=== PATIENT | female | born 1990 | race Caucasian/White ===

== ENCOUNTER 2024-06-23 13:06 | Inpatient (IN) | payer MEDICAID ==
[~2024-06-23] VITALS: Ht 165.1 cm; Wt 217.1 kg
--- NOTE | 2024-06-23 13:24 | ED.PDOC ---
HPI Comments 34 y.o female presents to the ED via EMS for a chief complaint of chest pain. Patient was transported out from [facility] for high level of care. Patient has a history of chest pain in the past. Patient reports recent recovery from the stomach virus about 2 days ago. Denies any nausea, vomiting, diarrhea, fever, chills, or SOB. 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 Family History Family History: Reviewed,noncontributory to illness Social History Smoker: Non-Smoker Alcohol: Denies ETOH Use Drugs: Denies Drug Use Lives In: Home Constitutional: denies: chills, diaphoresis, fatigue, fever, malaise, sweats, weakness, others EENTM: denies: blurred vision, double vision, ear bleeding, ear discharge, ear drainage, ear pain, ear ringing, eye pain, eye redness, hearing loss, mouth pain, mouth swelling, nasal discharge, nose bleeding, nose congestion, nose pain, photophobia, tearing, throat pain, throat swelling, voice changes, others Respiratory: denies: cough, hemoptysis, orthopnea, SOB at rest, shortness of breath, SOB with excertion, stridor, wheezing, others Cardiovascular: reports: chest pain; denies: dizzy spells, diaphoresis, Dyspnea on exertion, edema, irregular heart beat, left arm pain, lightheadedness, palpitations, PND, syncope, others Gastrointestinal: denies: abdomen distended, abdominal pain, blood streaked bowels, constipated, diarrhea, dysphagia, difficulty swallowing, hematemesis, melena, nausea, poor appetite, poor fluid intake, rectal bleeding, rectal pain, vomiting, others Genitourinary: denies: abnormal vagina bleeding, burning, dyspareunia, dysuria, flank pain, frequency, hematuria, incontinence, pain, , vagina discharge, urgency, others Neurological: denies: dizziness, fainting, headache, left sided numbness, left sided weakness, numbness, paresthesia, pre-existing deficit, right sided numbness, right sided weakness, seizure, speech problems, tingling, tremors, weakness, others Musculoskeletal: denies: back pain, gout, joint pain, joint swelling, muscle pain, muscle stiffness, neck pain, others Integumetry: denies: bruises, change in color, change in hair/nails, dryness, laceration, lesions, lumps, rash, wounds, others Allergic/Immunocompromised: denies: Difficulty Healing, Frequent Infections, Hives, Itching, others Hematologic/Lymphatic: denies: anemia, blood clots, easy bleeding, easy bruising, swollen glands, others Endocrine: denies: excessive hunger, excessive sweating, excessive thirst, excessive urination, flushing, intolerance to cold, intolerance to heat, unexplained weight gain, unexplained weight loss, others Psychiatric: denies: anxiety, bipolar disorder, depression, hopeless, panic disorder, schizophrenia, sleepless, suicidal, others All Other Systems: Reviewed and Negative Physical Exam General Appearance: No Apparent Distress, Normal HEENT: Normal ENT Inspection, Pharynx Normal, TMs Normal Neck: Full Range of Motion, Non-Tender, Normal, Normal Inspection Respiratory: Chest Non-Tender, Lungs Clear, No Accessory Muscle Use, No Respiratory Distress, Normal Breath Sounds Cardiovascular: No Edema, No Murmur, No Gallop, Regular Rate/Rhythm Breast Exam: Deferred Gastrointestinal: No Organomegaly, Non Tender, No Pulsatile Mass, Normal Bowel Sounds, Soft Genitalia: Deferred Pelvic: Deferred Rectal: Deferred Extremities: No calf tenderness, Normal capillary refill, Normal inspection, Normal range of motion, Non-tender, No pedal edema Musculoskeletal : Apperance: Normal Neurologic: Alert, machine icer II-XII nml as Tested, No Motor Deficits, Normal Affect, Normal Mood, No Sensory Deficits Cerebellar Function: Normal Reflexes: Normal Skin: Dry, Normal Color, Warm Lymphatic: No Adenopathy EKG EKG : Pulse Rate (adult): 56 [place]: Normal Cardiac Rhythm: NSR Block: None Hypertrophy: None ST: Normal Was a procedure done? Was a procedure done?: No CP Differential Dx Differential Diagnosis: Angina, Anxiety / Panic Attack, Heart Failure, Pulmonary Embolus, N/A Differential Diagnosis: Angina, Aortic dissection, Chest Wall Pain, Cholelithiasis, Costochondritis, Esophageal reflux/spasm, Gastritis, Myocardial Infarction, Pericarditis, Pneumonia, Pneumothorax, Pulmonary Embolus X-Ray, Labs, Meds, VS Vital Signs Date Time Temp Pulse Resp B/P (MAP) Pulse Ox O2 Delivery O2 Flow Rate FiO2 06/23/24 16:00 60 21 106/61 (76) 96 06/23/24 13:35 58 26 97 Room Air* 0 21 06/23/24 13:35 58 26 97/51 (66) 97 06/23/24 13:15 56 06/23/24 13:15 98.7 60 18 83/57 (66) 98 Lab Test 06/23/24 14:44 06/23/24 13:40 Range/Units Troponin I High Sensitivity 4119 *H 4530 *H </=34 ng/L White Blood Count 6.0 4.4-10.8 10^3/uL Red Blood Count 4.57 4.0-5.20 10^6/uL Hemoglobin 13.9 12.2-16.2 g/dL Hematocrit 41.9 36.0-46.0 % Mean Corpuscular Volume 91.6 80.0-100.0 fL Mean Corpuscular Hemoglobin 30.4 28.0-32.0 pg Mean Corpuscular Hemoglobin Concent 33.2 32.0-36.0 g/dL Red Cell Distribution Width 13.1 11.8-14.3 % Platelet Count 210 140-450 10^3/uL Mean Platelet Volume 9.0 6.9-10.8 fL Neutrophils (%) (Auto) 63.6 37.0-80.0 % Lymphocytes (%) (Auto) 23.7 10.0-50.0 % Monocytes (%) (Auto) 11.6 0.0-12.0 % Eosinophils (%) (Auto) 0.9 0.0-7.0 % Basophils (%) (Auto) 0.2 0.0-2.0 % Neutrophils # (Auto) 3.8 1.6-8.6 10 ^3/uL Lymphocytes # (Auto) 1.4 0.4-5.4 10 ^3/uL Monocytes # (Auto) 0.7 0-1.3 10 ^3/uL Eosinophils # (Auto) 0.1 0-0.8 10 ^3/uL Basophils # (Auto) 0 0-0.2 10 ^3/uL Nucleated Red Blood Cells 0.1 % Erythrocyte Sedimentation Rate 18 0-20 mm/hr Prothrombin Time 10.4 9.3-11.8 sec Prothrombin Time INR 0.98 0.9-1.15 Activated Partial Thromboplast Time 41.7 H 24.5-34.5 SEC Sodium Level 140 136-145 mmol/L Potassium Level 3.8 3.5-5.1 mmol/L Chloride Level 112 H 98-107 mmol/L Carbon Dioxide Level 18 L 20-31 mmol/L Anion Gap 10 5-15 Blood Urea Nitrogen 10 9-23 mg/dL Creatinine 0.68 0.550-1.02 mg/dL Glomerular Filtration Rate Calc 119 >90 mL/min BUN/Creatinine Ratio 14.7 10.0-20.0 Serum Glucose 98 74-106 mg/dL Hemoglobin A1c 5.2 <5.7 % A1C Calcium Level 9.4 8.7-10.4 mg/dL Magnesium Level 2.2 1.6-2.6 mg/dL Total Bilirubin 0.3 0.2-1.0 mg/dL Aspartate Amino Transferase (AST) 36 13-40 U/L Alanine Aminotransferase (ALT) 22 7-40 U/L Alkaline Phosphatase 82 46-116 U/L C-Reactive Protein High Sensitivity 4.28 H <1.0 mg/dL B-Type Natriuretic Peptide 130.47 0-100 pg/mL Total Protein 6.9 5.7-8.2 g/dL Albumin 4.1 3.2-4.8 g/dL Triglycerides Level 127 < 150 mg/dL Cholesterol Level 124 < 200 mg/dL LDL Cholesterol 64 < 100 mg/dL HDL Cholesterol 38 L 40-59 mg/dL Thyroid Stimulating Hormone (TSH) 0.17 L 0.55-4.78 uIU/mL Current Medications Medications (Trade) Dose Ordered Sig/Chantal Route Start Time Stop Time Status Last Admin Heparin Sodium/ Dextrose 250 ml @ 10 mls/hr Q24H IV 06/23/24 13:45 06/23/24 16:11 DC 06/23/24 14:35 Pantoprazole Sodium (Protonix Tablet) 40 mg ONCE ONCE PO 06/23/24 16:15 06/23/24 16:17 DC 06/23/24 16:23 Time of 1ST Reevaluation: 13:17 Reevaluation 1ST: Unchanged Reevaluation 2ND: Unchanged Patient Education/Counseling: Diagnosis, Treatment, Prognosis Family Education/Counseling: No Family Present Additional Information Ordered Test- CBC, CMP, BMP, cxr, ekg, trop Reviewed Results- LAB including : Magnesium, PTPTT, and Troponin. 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 CXR taken at this facility- reviewed and agree with radiology- IMPRESSION: No evidence of acute disease in the chest. pt had a cta, which was negative for PE or any pathologies. pt has sharp chest pain, which is atypical, but her trop increased. here HEART score is only 2. she may have pericarditis, but CTA, exam , and labs so far have not shown any evidence of it. for this typical chest pain case with elevated trop, she will be admitted to have cardiology consult Departure 1 Departure Time of Disposition: 17:15 Impression: Primary Impression: Elevated troponin Additional Impression: Chest pain Qualified Codes: R07.9 - Chest pain, unspecified Disposition: ADMITTED INPATIENT Admit to: [facility] Condition: Stable Critical Care Note Critical Care Time?: Yes (55 min-critical care time only) Critical care comment: due to concerns for sudden deterioration of pt's condition, the patient's care required my most attentive level and highest readiness to intervene. i assessed him, ordered the appropriate orders, reviewed the results, and reassessed the patient's response, formulated a care plan, communicated with medical personnel and consultants. total time include at least 50% face-face interaction and does not include any procedures Stability Stability form required: No Heart Score Heart Score: Heart Score Response (Comments) Value History Slightly Suspicious 0 EKG Normal 0 Age <45 0 Risk Factors 1 or 2 risk factors 1 Troponin 1-2 x's Normal limit 1 Total 2 I personally scribed for KERMIT BERMUDEZ MD ([facility]) on 06/23/24 at 13:24. Electronically submitted by Sharee Gregorio ([facility]). I personally scribed for KERMIT BERMUDEZ MD (REPLACED BY [facility]) on 06/23/24 at 13:26. Electronically submitted by Sharee Gregorio ([facility]). I personally scribed for KERMIT BERMUDEZ MD (REPLACED BY [facility]) on 06/23/24 at 13:46. Electronically submitted by Sharee Gregorio ([facility]). I personally scribed for KERMIT BERMUDEZ MD (REPLACED BY [facility]) on 06/23/24 at 15:33. Electronically submitted by Sharee Gregorio ([facility]). I personally scribed for KERMIT BERMUDEZ MD (REPLACED BY [facility]) on 06/23/24 at 16:13. Electronically submitted by Sharee Gregorio ([facility]). KERMIT BERMUDEZ MD Jun 23, 2024 13:24
[2024-06-23 13:35] VITALS: PULSE 58; RESP 26; O2SAT 97
[2024-06-23 14:02] LABS: Basophils # (auto) 0 10 ^3/uL (0-0.2); Basophils % (auto) 0.2 % (0.0-2.0); Eosinophils # (auto) 0.1 10 ^3/uL (0-0.8); Eosinophils % (auto) 0.9 % (0.0-7.0); Hematocrit 41.9 % (36.0-46.0); Hemoglobin 13.9 g/dL (12.2-16.2); Lymphocytes # (auto) 1.4 10 ^3/uL (0.4-5.4); Lymphocytes % (auto) 23.7 % (10.0-50.0); Mean Corpuscular Hemoglobin 30.4 pg (28.0-32.0); Mean Corpuscular Hgb Conc. 33.2 g/dL (32.0-36.0); Mean Corpuscular Volume 91.6 fL (80.0-100.0); Monocytes # (auto) 0.7 10 ^3/uL (0-1.3); Monocytes % (auto) 11.6 % (0.0-12.0); Neutrophils # (auto) 3.8 10 ^3/uL (1.6-8.6); Neutrophils % (auto) 63.6 % (37.0-80.0); Nucleated Red Blood Cells % 0.1 %; Platelet Count (auto) 210 10^3/uL (140-450); Red Blood Cells 4.57 10^6/uL (4.0-5.20); Red Cell Distribution Width 13.1 % (11.8-14.3)
[2024-06-23 14:21] LABS: Alanine Aminotransferase 22 U/L (7-40); Albumin 4.1 g/dL (3.2-4.8); Alkaline Phosphatase 82 U/L (46-116); Anion Gap 10 (5-15); Aspartate Aminotransferase 36 U/L (13-40); BUN/Creatinine Ratio 14.7 (10.0-20.0); Bilirubin, Total 0.3 mg/dL (0.2-1.0); Blood Urea Nitrogen 10 mg/dL (9-23); Calcium 9.4 mg/dL (8.7-10.4); Glucose 98 mg/dL (74-106); Magnesium 2.2 mg/dL (1.6-2.6); Potassium 3.8 mmol/L (3.5-5.1); Sodium 140 mmol/L (136-145); Total Protein 6.9 g/dL (5.7-8.2)
[2024-06-23 14:27] LABS: INR 0.98 (0.9-1.15); Partial Thromboplastin Time 41.7 SEC (24.5-34.5); Prothrombin Time 10.4 sec (9.3-11.8)
[2024-06-23 14:29] LABS: Carbon Dioxide 18 mmol/L (20-31); Chloride 112 mmol/L (98-107)
[2024-06-23] MEDS: HEPARIN DRIP/D5W 100UNITS/ML 250 ML IV SCH (14:35)
--- NOTE | 2024-06-23 14:45 | DVH ---
CLINICAL INFORMATION: 34 years old, Female; CHEST PAIN. TECHNIQUE: Single AP portable chest radiograph was obtained. COMPARISON: None FINDINGS: Lungs: Clear. Cardiac: Heart size is within normal limits. Pulmonary vasculature: Unremarkable. Mediastinum/marge: Unremarkable. Bones: No acute osseous abnormality identified. Other: No other significant findings. IMPRESSION: No evidence of acute disease in the chest.
[2024-06-23] MEDS: PANTOPRAZOLE 40 MG TAB PO ONE (16:23)
--- NOTE | 2024-06-23 16:29 | DVHINCON2 ---
Date Seen: Jun 23, 2024 Referring Physician MD Deidre Reason for Consultation NSTEMI History of Present Illness This is a pleasant 34-year-old female who presented to the emergency room via [facility] as a transfer to our facility from [facility] for higher level of care given trending troponin levels. The patient reports she presented the aforementioned facility with complaints of chest pain described as retrosternal, sharp/stabbing in nature, and associated with mild shortness of breath. During assessment the pain was worse when lying down and getting better as she was sitting up. The patient also reports recent symptoms of gastroenteritis including nausea, vomiting, and diarrhea two days ago. Prior to transfer to our facility she underwent a 12 lead electrocardiogram revealing a sinus rhythm with no obvious evidence of ischemia, a CT angio chest with contrast negative for PE/acute processes, a chest x-ray deemed to be unremarkable, and a troponin level slightly >2 ng/mL. She underwent a subsequent 12 lead electrocardiogram our facility revealing a sinus bradycardia rhythm without ST-segment changes. Troponin levels peaked at 4,500s ng/L. Only medical history reported is migraine headaches currently on Topamax and propranolol therapy. Past Medical History Past medical history reviewed. No other significant than mentioned above. Past Surgical History C-sections x3 Family History Family history reviewed. Social History Denies the use of illicit drugs, alcohol, or tobacco use. Allergies: Coded Allergies: NO KNOWN ALLERGIES (Unverified , 06/23/24) Home Meds Home medications reviewed. Current Medications Current Medications Medications (Trade) Dose Ordered Sig/Chantal Route PRN Reason Start Time Stop Time Status Last Admin Heparin Sodium/ Dextrose 250 ml @ 10 mls/hr Q24H IV 06/23/24 13:45 06/23/24 14:35 Review of Systems Constitutional: No symptom reported Ears, Nose, & Throat: No symptom reported Eyes: No symptom reported Neurological: No symptoms reported Pulmonary/Respiratory: No symptom reported Cardiovascular: Chest pain Gastrointestinal: No symptom reported Genitourinary: No symptom reported Musculoskeletal: No symptom reported Skin: No symptom reported Psychiatric: No symptom reported Endocrine: No symptom reported Hemotologic/Lymphatic: No symptom reported Vital Signs Vital Signs Date Time Temp Pulse Resp B/P (MAP) Pulse Ox O2 Delivery O2 Flow Rate FiO2 06/23/24 13:35 58 26 97 Room Air* 0 21 06/23/24 13:35 97/51 (66) 06/23/24 13:15 98.7 Physical Exam General Appearance: Cooperative. Well developed. Obese. In no acute distress Head Exam: Normal inspection Neck Exam: Normal inspection. Non-tender. Normal alignment Pulmonary/Respiratory: Chest non-tender. Clear bilateral breath sounds Cardiovascular/Chest: Regular rate and rhythm. S1, S2. Sinus bradycardia. No murmurs. No JVD. Peripheral Pulses: 2+ Radial (R). 2+ Radial (L). 2+ Pedal (R). 2+ Pedal (L) Abdominal Exam: Normal bowel sounds. Soft. Nontender. No hepatospenomegaly. No masses Ankle Exam: Negative ankle edema Lower extremities: Negative lower extremity edema Neuro/Mental Status: A&O x4. Coherent Thoughts/Psych: Normal thought pattern. Appropriate mood and affect. Good judgement and insight Appearance: In no acute distress Skin Exam: Normal inspection. Normal color. Warm. Dry Labs/Diagnostic Data Labs Test 06/23/24 14:44 06/23/24 13:40 Range/Units Troponin I High Sensitivity 4119 *H </=34 ng/L White Blood Count 6.0 4.4-10.8 10^3/uL Red Blood Count 4.57 4.0-5.20 10^6/uL Hemoglobin 13.9 12.2-16.2 g/dL Hematocrit 41.9 36.0-46.0 % Mean Corpuscular Volume 91.6 80.0-100.0 fL Mean Corpuscular Hemoglobin 30.4 28.0-32.0 pg Mean Corpuscular Hemoglobin Concent 33.2 32.0-36.0 g/dL Red Cell Distribution Width 13.1 11.8-14.3 % Platelet Count 210 140-450 10^3/uL Mean Platelet Volume 9.0 6.9-10.8 fL Neutrophils (%) (Auto) 63.6 37.0-80.0 % Lymphocytes (%) (Auto) 23.7 10.0-50.0 % Monocytes (%) (Auto) 11.6 0.0-12.0 % Eosinophils (%) (Auto) 0.9 0.0-7.0 % Basophils (%) (Auto) 0.2 0.0-2.0 % Neutrophils # (Auto) 3.8 1.6-8.6 10 ^3/uL Lymphocytes # (Auto) 1.4 0.4-5.4 10 ^3/uL Monocytes # (Auto) 0.7 0-1.3 10 ^3/uL Eosinophils # (Auto) 0.1 0-0.8 10 ^3/uL Basophils # (Auto) 0 0-0.2 10 ^3/uL Nucleated Red Blood Cells 0.1 % Prothrombin Time 10.4 9.3-11.8 sec Prothrombin Time INR 0.98 0.9-1.15 Activated Partial Thromboplast Time 41.7 H 24.5-34.5 SEC Sodium Level 140 136-145 mmol/L Potassium Level 3.8 3.5-5.1 mmol/L Chloride Level 112 H 98-107 mmol/L Carbon Dioxide Level 18 L 20-31 mmol/L Anion Gap 10 5-15 Blood Urea Nitrogen 10 9-23 mg/dL Creatinine 0.68 0.550-1.02 mg/dL Glomerular Filtration Rate Calc 119 >90 mL/min BUN/Creatinine Ratio 14.7 10.0-20.0 Serum Glucose 98 74-106 mg/dL Calcium Level 9.4 8.7-10.4 mg/dL Magnesium Level 2.2 1.6-2.6 mg/dL Total Bilirubin 0.3 0.2-1.0 mg/dL Aspartate Amino Transferase (AST) 36 13-40 U/L Alanine Aminotransferase (ALT) 22 7-40 U/L Alkaline Phosphatase 82 46-116 U/L B-Type Natriuretic Peptide 130.47 0-100 pg/mL Total Protein 6.9 5.7-8.2 g/dL Albumin 4.1 3.2-4.8 g/dL Assessment NSTEMI likely secondary to acute viral pericarditis Recent gastroenteritis, 2d ago Sinus bradycardia on propranolol Rule out structural heart disease Migraine headaches Obesity Plan/Recommendation (Dr. Zuleta) Case discussed with Dr. Zuleta. Chest pain likely secondary to acute pericarditis likely secondary to recent gastroenteritis. We will initiate the patient on NSAIDs, colchicine, and PPI. Continue evaluation of ESR and CRP values. Continue transthoracic echocardiogram to rule out structural heart dise ase. Discontinue heparin drip at this time. Monitor ECG changes and notify. ECG and serial troponin level in the a.m. Further workup per clinical course. Thank you for allowing us to participate in this patient's care. Please call if you have any questions or concerns. Critical care time: 40 min. This medical document was created using an electronic medical record system with voice recognition software and computerized dictation system. Although this document has been carefully reviewed, there might still be some phonetic and typographical errors. Occasional wrong-word or ``sound-alike substitutions may have occurred due to the inherent limitations of voice recognition software. These areas are purely typographical due to imperfections of the software programs and do not reflect any compromise in the patient's medical care. Please read the chart carefully and recognize, using context, where these substitutions have occurred. Plan discussed with: Patient, Other Date of Service: Jun 23, 2024 Billing Provider: BRAXTON ZULETA MD Cardiology Common Codes: 72670-[id number] CARE 30-74 MIN [facility]AD[facility] BANKS [facility] Jun 23, 2024 16:29
[2024-06-23] MEDS ORDERED: NITROGLYCERIN 0.4 MG SL TAB SL PRN ×2 (16:30)
[2024-06-23] MEDS ORDERED: MORPHINE SULFATE 4 MG/ML SYR/VIAL IV PRN (16:30)
[2024-06-23] MEDS ORDERED: ZOLPIDEM TARTRATE 5 MG TAB PO PRN (16:30)
[2024-06-23] MEDS ORDERED: ACETAMINOPHEN 325 MG TAB PO PRN (16:30)
[2024-06-23] MEDS ORDERED: ONDANSETRON HCL 4 MG/2 ML VIAL IV PRN (16:30)
[2024-06-23] MEDS ORDERED: LORazepam 0.5 MG TAB PO PRN (16:30)
[2024-06-23] MEDS ORDERED: MORPHINE SULFATE INJ 2 MG/ml SYRG IV PRN (16:30)
--- NOTE | 2024-06-23 16:46 | DVHHP2 ---
History of Present Illness Reason for Visit: Chest pain History of Present Illness 34-year-old female morbidly obese came into the ED for evaluation of acute chest pain patient was brought in via transportation of [employer] and Cardiology consult was done initially the thought process was extremely high troponins with the patient having a suspected NSTEMI however after further evaluation with Cardiology the process shifted to the patient having a acute viral pericarditis the patient was recommended for admission close monitoring and further evaluation and inpatient treatment recommended serial troponins follow-up labs and continued workup as per Cardiology patient will be admitted for further care Review of Systems Constitutional: Yes: Weakness; No: Fever, Chills, Sweats, Malaise, Other Eyes: No: Pain, Vision change, Conjunctivae inflammation, Eyelid inflammation, Other, Redness ENT: No: Ear pain, Ear discharge, Nose pain, Nose discharge, Nose congestion, Mouth pain, Mouth swelling, Throat pain, Throat swelling, Other Respiratory: No: Cough, Dry, Shortness of breath, SOB with excertion, Wheezing, Hemoptysis, Pleuritic Pain, Sputum, Wheezing, Other Cardiovascular: Chest Pain, Palpitations; No: Orthopnea, Paroxysmal Noc. Dyspnea, Edema, Lt Headedness, Other Gastrointestinal: No: Nausea, Vomiting, Abdominal Pain, Diarrhea, Constipation, Melena, Hematochezia, Other Genitourinary: No Dysuria, No Frequency, No Incontinence, No Hematuria, No Retention, No Other Musculoskeletal: No: other, neck pain, shoulder pain, arm pain, back pain, hand pain, leg pain, foot pain Skin: No: Rash, Lesions, Jaundice, Bruising, Other Neurological: No: Weakness, Numbness, Incoordination, Change in speech, Confusion, Seizures, Other Allergies: Coded Allergies: NO KNOWN ALLERGIES (Unverified , 06/23/24) Medications Current Medications Medications Dose Ordered Sig/Chantal Route Start Time Stop Time Status Last Admin Dose Admin Ibuprofen 600 mg TID PO 06/23/24 22:00 Pantoprazole Sodium 40 mg DAILY@0630 PO 06/24/24 06:30 Colchicine 0.6 mg Q12HR PO 06/23/24 22:00 Aspirin 81 mg DAILY PO 06/24/24 10:00 UNV Clopidogrel Bisulfate 75 mg DAILY PO 06/24/24 10:00 UNV Atorvastatin Calcium 80 mg HS PO 06/23/24 22:00 UNV Metoprolol Tartrate 12.5 mg Q12HR PO 06/23/24 22:00 UNV Lisinopril 5 mg DAILY PO 06/24/24 10:00 UNV Morphine Sulfate 2 mg Q30MP PRN IV 06/23/24 16:30 UNV Acetaminophen 650 mg Q6HP PRN PO 06/23/24 16:30 UNV Zolpidem Tartrate 5 mg QHSP PRN PO 06/23/24 16:30 UNV Lorazepam 0.5 mg Q6HP PRN PO 06/23/24 16:30 UNV Docusate Sodium 100 mg DAILY PO 06/24/24 10:00 UNV Enoxaparin Sodium 90 mg Q12HR SC 06/23/24 22:00 UNV Nitroglycerin 0.4 mg Q5MINP PRN SL 06/23/24 16:30 UNV Ondansetron HCl 4 mg Q4HP PRN IV 06/23/24 16:30 UNV Al Hydrox/Mg Hydrox/Simethicone 30 ml PRN PRN PO 06/23/24 16:30 UNV Nitroglycerin 0.4 mg Q5MINP PRN SL 06/23/24 16:30 UNV Morphine Sulfate 2 mg Q30M PRN IV 06/23/24 16:30 UNV Exam Vital Signs Vital Signs Date Time Temp Pulse Resp B/P (MAP) Pulse Ox O2 Delivery O2 Flow Rate FiO2 06/23/24 16:00 60 21 106/61 (76) 96 06/23/24 13:35 Room Air* 0 21 06/23/24 13:15 98.7 General Appearance: Alert, Oriented X3, Cooperative HEENT: Atraumatic, PERRLA, EOMI Respiratory: Clear to auscultation, Normal air movement Cardiovascular: Regular rate, Normal S1, Normal S2 Abdominal: Normal bowel sounds, Soft Extremities: No clubbing, No cyanosis, No edema Skin: No rashes, No breakdown Neuro: Normal gait, Normal speech Psych/Mental Status: Mood NL Labs/Xrays Labs Test 06/23/24 14:44 06/23/24 13:40 Range/Units Troponin I High Sensitivity 4119 *H </=34 ng/L White Blood Count 6.0 4.4-10.8 10^3/uL Red Blood Count 4.57 4.0-5.20 10^6/uL Hemoglobin 13.9 12.2-16.2 g/dL Hematocrit 41.9 36.0-46.0 % Mean Corpuscular Volume 91.6 80.0-100.0 fL Mean Corpuscular Hemoglobin 30.4 28.0-32.0 pg Mean Corpuscular Hemoglobin Concent 33.2 32.0-36.0 g/dL Red Cell Distribution Width 13.1 11.8-14.3 % Platelet Count 210 140-450 10^3/uL Mean Platelet Volume 9.0 6.9-10.8 fL Neutrophils (%) (Auto) 63.6 37.0-80.0 % Lymphocytes (%) (Auto) 23.7 10.0-50.0 % Monocytes (%) (Auto) 11.6 0.0-12.0 % Eosinophils (%) (Auto) 0.9 0.0-7.0 % Basophils (%) (Auto) 0.2 0.0-2.0 % Neutrophils # (Auto) 3.8 1.6-8.6 10 ^3/uL Lymphocytes # (Auto) 1.4 0.4-5.4 10 ^3/uL Monocytes # (Auto) 0.7 0-1.3 10 ^3/uL Eosinophils # (Auto) 0.1 0-0.8 10 ^3/uL Basophils # (Auto) 0 0-0.2 10 ^3/uL Nucleated Red Blood Cells 0.1 % Prothrombin Time 10.4 9.3-11.8 sec Prothrombin Time INR 0.98 0.9-1.15 Activated Partial Thromboplast Time 41.7 H 24.5-34.5 SEC Sodium Level 140 136-145 mmol/L Potassium Level 3.8 3.5-5.1 mmol/L Chloride Level 112 H 98-107 mmol/L Carbon Dioxide Level 18 L 20-31 mmol/L Anion Gap 10 5-15 Blood Urea Nitrogen 10 9-23 mg/dL Creatinine 0.68 0.550-1.02 mg/dL Glomerular Filtration Rate Calc 119 >90 mL/min BUN/Creatinine Ratio 14.7 10.0-20.0 Serum Glucose 98 74-106 mg/dL Calcium Level 9.4 8.7-10.4 mg/dL Magnesium Level 2.2 1.6-2.6 mg/dL Total Bilirubin 0.3 0.2-1.0 mg/dL Aspartate Amino Transferase (AST) 36 13-40 U/L Alanine Aminotransferase (ALT) 22 7-40 U/L Alkaline Phosphatase 82 46-116 U/L B-Type Natriuretic Peptide 130.47 0-100 pg/mL Total Protein 6.9 5.7-8.2 g/dL Albumin 4.1 3.2-4.8 g/dL Triglycerides Level 127 < 150 mg/dL Cholesterol Level 124 < 200 mg/dL LDL Cholesterol 64 < 100 mg/dL HDL Cholesterol 38 L 40-59 mg/dL Assessment/Plan Assessment/Plan Admit to telemetry NSTEMI Melo to be due secondary to acute pericarditis Cardiology already consulted Echo requested by Cardiology and pending Chest pain protocol for safety precautions Continue with Protonix as per Cardiology Continue with colchicine 0.6 mg b.i.d. Continue with high levels of NSAIDs Ibuprofen 600 mg t.i.d. Continue with Protonix Patient was placed on therapeutic Lovenox We will continue to follow up with management via Cardiology P.r.n. medications for pain management Plan discussed with: Patient My Orders Orders - MILIND CHAPARRO MD Procedure Category Date Status Time Admit ADMIT 06/23/24 Transmitted 16: Code Status CODE 06/23/24 Transmitted 16:28 Cardiac DIET 06/23/24 Transmitted Diet-2gna,Lofat,Lochol Dinner Aspirin Tablet PHA 06/24/24 In Process 10:00 Clopidogrel Bisulfate PHA 06/24/24 In Process (Plavix) 10:00 Atorvastatin (Lipitor) PHA 06/23/24 In Process 22:00 Metoprolol Tartrate PHA 06/23/24 In Process Tablet (Lopressor Ta 22:00 Lisinopril Tablet PHA 06/24/24 In Process (Zestril Tablet) 10:00 Acetaminophen Tablet PHA 06/23/24 In Process (Tylenol Tablet) 16:30 Zolpidem Tartrate PHA 06/23/24 In Process (Ambien) 16:30 Lorazepam Tablet PHA 06/23/24 In Process (Ativan Tablet) 16:30 Docusate Sodium PHA 06/24/24 In Process Capsule (Colace 10:00 Complete Blood Count LAB 06/25/24 Verified 04:00 Basic Metabolic Panel LAB 06/25/24 Verified 04:00 Enoxaparin Sodium PHA 06/23/24 Logged (Lovenox) 22:00 Ondansetron Hcl PHA 06/23/24 In Process (Zofran) 16:30 Electrocardigram EKG 06/23/24 Logged 16:28 Alum & Mag PHA 06/23/24 Logged Hydrox-Simethicone 16:30 Troponin-I Hs LAB 06/23/24 Logged 16:28 Cardiac OSWALD 06/23/24 In Process Rehabilitation - Outpa Nitroglycerin PHA 06/23/24 In Process Sublingual (Ntrostat 16:30 Morphine Sulfate PHA 06/23/24 In Process Injection 16:30 Stat Ekg For Chest OSWALD 06/23/24 In Process Pain 16:28 Notify Md Of Changes [facility] 06/23/24 In Process From Base 16:28 Pin Drafting Machine Tender For [facility] 06/23/24 In Process 24 Hours 16:28 Emergency Dysrhythmia [facility] 06/23/24 In Process Protocol 16:28 Rhythm Strips Once [facility] 06/23/24 In Process Every Shift 16:28 Oxygen By Nasal RT 06/23/24 Transmitted Cannula 16:28 Electrocardigram EKG 06/23/24 Logged 17:28 Electrocardigram EKG 06/23/24 Logged 19:28 Problem List: (1) Morbid obesity (2) Acute pericarditis (3) Elevated troponin Date of Service: Jun 23, 2024 Billing Provider: MILIND CHAPARRO MD Common Visit Codes: [id number] INP/OBS CARE (HIGH) MILIND CHAPARRO MD Jun 23, 2024 16:46
[2024-06-23 16:47] LABS: CRP High Sensitivity 4.28 mg/dL (<1.0)
[2024-06-23 16:56] LABS: Erythrocyte Sedimentation Rate 18 mm/hr (0-20)
[2024-06-23] MEDS: MAALOX PLUS or MAALOX 30 ML PO ONE (16:57)
[2024-06-23 19:24] VITALS: O2SAT 98
[2024-06-23 20:00] VITALS: PULSE 16; PULSE 63; RESP 20; O2SAT 90
[2024-06-23 20:01] VITALS: BP 108/56; PULSE 61; RESP 18; TEMP 98.4; O2SAT 97
[2024-06-23] MEDS ORDERED: PROP80CA40 PO (20:24)
[2024-06-23] MEDS ORDERED: TOPI25TA43 PO (20:24)
[2024-06-23 21:00] VITALS: BP 106/51; PULSE 63; RESP 20; TEMP 98.2; O2SAT 90
[2024-06-23] MEDS ORDERED: METOPROLOL TARTRATE 25 MG TAB PO SCH (22:00)
[2024-06-23] MEDS ORDERED: ATORVASTATIN 20 MG TAB PO SCH (22:00)
[2024-06-23] MEDS ORDERED: ENOXAPARIN SOD 100 MG/1 ML SYRINGE SC SCH (22:00)
[2024-06-23] MEDS: COLCHICINE 0.6 MG CAP PO SCH (22:17)
[2024-06-23] MEDS: IBUPROFEN 600 MG TAB PO SCH (22:18)
[2024-06-24] VITALS (8 sets, daily range): BP systolic 94–150; BP diastolic 46–76; PULSE 50–94; RESP 17–20; TEMP 97.7–98.5; O2SAT 57–100
[2024-06-24] MEDS: PANTOPRAZOLE 40 MG TAB PO SCH (05:43)
[2024-06-24 06:05] LABS: Basophils # (auto) 0 10 ^3/uL (0-0.2); Basophils % (auto) 0.3 % (0.0-2.0); Eosinophils # (auto) 0 10 ^3/uL (0-0.8); Eosinophils % (auto) 0.9 % (0.0-7.0); Hematocrit 39.3 % (36.0-46.0); Hemoglobin 13.2 g/dL (12.2-16.2); Lymphocytes # (auto) 2.1 10 ^3/uL (0.4-5.4); Lymphocytes % (auto) 42.4 % (10.0-50.0); Mean Corpuscular Hemoglobin 30.8 pg (28.0-32.0); Mean Corpuscular Hgb Conc. 33.7 g/dL (32.0-36.0); Mean Corpuscular Volume 91.3 fL (80.0-100.0); Monocytes # (auto) 0.6 10 ^3/uL (0-1.3); Monocytes % (auto) 12.9 % (0.0-12.0); Neutrophils # (auto) 2.1 10 ^3/uL (1.6-8.6); Neutrophils % (auto) 43.5 % (37.0-80.0); Nucleated Red Blood Cells % 0.1 %; Platelet Count (auto) 200 10^3/uL (140-450); Red Cell Distribution Width 12.9 % (11.8-14.3); White Blood Cell 4.9 10^3/uL (4.4-10.8)
[2024-06-24 06:16] LABS: Potassium 3.6 mmol/L (3.5-5.1); Sodium 141 mmol/L (136-145)
[2024-06-24 06:17] LABS: Anion Gap 13 (5-15); Calcium 8.9 mg/dL (8.7-10.4)
[2024-06-24 06:22] LABS: BUN/Creatinine Ratio 16.7 (10.0-20.0); Blood Urea Nitrogen 12 mg/dL (9-23); Carbon Dioxide 17 mmol/L (20-31); Chloride 111 mmol/L (98-107); Glucose 95 mg/dL (74-106)
[2024-06-24] MEDS: DOCUSATE SOD 100 MG CAP PO SCH (10:00)
[2024-06-24] MEDS ORDERED: CLOPIDOGREL BISULFATE 75 MG TAB PO SCH (10:00)
[2024-06-24] MEDS ORDERED: ASPirin 81 mg TAB PO SCH (10:00)
[2024-06-24] MEDS ORDERED: LISINOPRIL 5 MG TAB PO SCH (10:00)
--- NOTE | 2024-06-24 11:11 | DVHPN2 ---
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 Patient denies any cardiac symptoms today. Objective vital signs Vital Sign Date Time Temp Pulse Resp B/P (MAP) Pulse Ox O2 Delivery O2 Flow Rate FiO2 06/24/24 09:00 98.0 81 18 150/76 (100) 97 98.0 06/23/24 20:00 Room Air* 0 21 Total Intake and Output 06/23/24 06/23/24 06/24/24 15:00 23:00 07:00 Intake Total 0 ml 500 ml Output Total 1200 ml Balance 0 ml -700 ml medications Current Medications Medications Dose Ordered Sig/Chantal Route Start Time Stop Time Status Last Admin Dose Admin Ibuprofen 600 mg TID PO 06/23/24 22:00 06/24/24 05:43 600 MG Pantoprazole Sodium 40 mg DAILY@0630 PO 06/24/24 06:30 06/24/24 05:43 40 MG Colchicine 0.6 mg Q12HR PO 06/23/24 22:00 06/23/24 22:17 0.6 MG Metoprolol Tartrate 12.5 mg Q12HR PO 06/23/24 22:00 Cancel Morphine Sulfate 2 mg Q30MP PRN IV 06/23/24 16:30 UNV Acetaminophen 650 mg Q6HP PRN PO 06/23/24 16:30 Zolpidem Tartrate 5 mg QHSP PRN PO 06/23/24 16:30 Lorazepam 0.5 mg Q6HP PRN PO 06/23/24 16:30 Docusate Sodium 100 mg DAILY PO 06/24/24 10:00 Nitroglycerin 0.4 mg Q5MINP PRN SL 06/23/24 16:30 UNV Ondansetron HCl 4 mg Q4HP PRN IV 06/23/24 16:30 Morphine Sulfate 2 mg Q30M PRN IV 06/23/24 16:30 Examination: GENERAL:Normal, LUNGS:Normal, CVS:Normal, NEURO:Normal laboratory and microbiology Laboratory Tests 06/24/24 05:35 Test 06/24/24 05:35 Range/Units Serum Glucose 95 74-106 mg/dL Problem List/Assessment/Plan Problem List/Assessment/Plan NSTEMI type II likely secondary to acute viral pericarditis Recent gastroenteritis, 2d ago Sinus bradycardia on propranolol, now NSR Migraine headaches Obesity Plan/Recommendation (Dr. Zuleta) Transthoracic echocardiogram reveals EF 60%. Chest pain likely secondary to acute pericarditis likely secondary to recent gastroenteritis. Continue NSAIDs, colchicine, and PPI. Troponin level now trending down . Patient denies any chest pain at time of assessment, states she feels better. There is no further inpatient cardiac workup indicated at this time. Patient to follow up with Cardiology in the outpatient setting in 1-2 weeks post discharge. Thank you for allowing us to care for this patient. Please call with any questions or concerns. This medical document was created using an electronic medical record system with voice recognition software and computerized dictation system. Although this document has been carefully reviewed, there might still be some phonetic and typographical errors. Occasional wrong-word or ``sound-alike substitutions may have occurred due to the inherent limitations of voice recognition software. These areas are purely typographical due to imperfections of the software programs and do not reflect any compromise in the patient's medical care. Please read the chart carefully and recognize, using context, where these substitutions have occurred. Plan discussed with: Patient Date of Service: Jun 24, 2024 Billing Provider: BRAXTON ZULETA MD Cardiology Common Codes: [id number] INP/OBS CARE(Mod) KEON PARKER RECTIFYING ATTENDANT Jun 24, 2024 11:11
--- NOTE | 2024-06-24 12:23 | DVHPN2 ---
Reviewed: Care Plan, H&P, Labs, Medications, Previous Orders, Radiology Changes from previous H/P or p: No Changes Eyes: No Pain, No Vision change, No Conjunctivae inflammation, No Eyelid inflammation, No Other, No Redness ENT: No Ear pain, No Ear discharge, No Nose pain, No Nose discharge, No Nose congestion, No Mouth pain, No Mouth swelling, No Throat pain, No Throat swelling, No Other Cardiovascular: Chest Pain, Palpitations; No Orthopnea, No Paroxysmal Noc. Dyspnea, No Edema, No Lt Headedness, No Other Respiratory: No Cough, No Dry, No Shortness of breath, No SOB with excertion, No Wheezing, No Hemoptysis, No Pleuritic Pain, No Sputum, No Other Gastrointestinal: No Nausea, No Vomiting, No Abdominal Pain, No Diarrhea, No Constipation, No Melena, No Hematochezia, No Other Genitourinary: No Dysuria, No Frequency, No Incontinence, No Hematuria, No Retention, No Other Musculoskeletal: No other, No neck pain, No shoulder pain, No arm pain, No back pain, No hand pain, No leg pain, No foot pain Skin: No Rash, No Lesions, No Jaundice, No Bruising, No Other Objective Vitals Vital Signs Date Time Temp Pulse Resp B/P (MAP) Pulse Ox O2 Delivery O2 Flow Rate FiO2 06/24/24 09:00 98.0 81 18 150/76 (100) 97 98.0 06/24/24 08:00 Room Air* 0 21 Intake/Output Intake and Output 06/24/24 07:00 Intake Total 500 ml Output Total 1200 ml Balance -700 ml Intake Oral 500 ml Output Urine Total 1200 ml Medications Current Medications Medications Dose Ordered Sig/Chantal Route Start Time Stop Time Status Last Admin Dose Admin Ibuprofen 600 mg TID PO 06/23/24 22:00 06/24/24 05:43 600 MG Pantoprazole Sodium 40 mg DAILY@0630 PO 06/24/24 06:30 06/24/24 05:43 40 MG Colchicine 0.6 mg Q12HR PO 06/23/24 22:00 06/24/24 10:00 0.6 MG Metoprolol Tartrate 12.5 mg Q12HR PO 06/23/24 22:00 Cancel Morphine Sulfate 2 mg Q30MP PRN IV 06/23/24 16:30 UNV Acetaminophen 650 mg Q6HP PRN PO 06/23/24 16:30 Zolpidem Tartrate 5 mg QHSP PRN PO 06/23/24 16:30 Lorazepam 0.5 mg Q6HP PRN PO 06/23/24 16:30 Docusate Sodium 100 mg DAILY PO 06/24/24 10:00 06/24/24 10:00 100 MG Nitroglycerin 0.4 mg Q5MINP PRN SL 06/23/24 16:30 UNV Ondansetron HCl 4 mg Q4HP PRN IV 06/23/24 16:30 Morphine Sulfate 2 mg Q30M PRN IV 06/23/24 16:30 Laboratory Results Laboratory Tests 06/24/24 05:35 Chemistry Test 06/23/24 13:40 06/24/24 05:35 Albumin 4.1 g/dL (3.2-4.8) Calcium Level 9.4 mg/dL (8.7-10.4) 8.9 mg/dL (8.7-10.4) Magnesium Level 2.2 mg/dL (1.6-2.6) Total Protein 6.9 g/dL (5.7-8.2) Coagulation Test 06/23/24 13:40 Prothrombin Time 10.4 sec (9.3-11.8) Prothrombin Time INR 0.98 (0.9-1.15) Activated Partial Thromboplast Time 41.7 SEC (24.5-34.5) H Lipid panel Test 06/23/24 13:40 Cholesterol Level 124 mg/dL (< 200) HDL Cholesterol 38 mg/dL (40-59) L Triglycerides Level 127 mg/dL (< 150) Cardiac Markers Test 06/23/24 13:40 B-Type Natriuretic Peptide 130.47 pg/mL (0-100) LFT Test 06/23/24 13:40 Alanine Aminotransferase (ALT) 22 U/L (7-40) Alkaline Phosphatase 82 U/L (46-116) Aspartate Amino Transferase (AST) 36 U/L (13-40) Total Bilirubin 0.3 mg/dL (0.2-1.0) HgA1c, TSH Test 06/23/24 13:40 Hemoglobin A1c 5.2 % A1C (<5.7) Thyroid Stimulating Hormone (TSH) 0.17 uIU/mL (0.55-4.78) L Labs and/or images reviewed: Labs reviewed by me, Image(s) reviewed by me Assessment/Plan Assessment/Plan NSTEMI troponins 4530 likely secondary to acute viral pericarditis cardiology consult by Dr. Salter appreciated placed on NSAIDs and colchicine pantoprazole Recent gastroenteritis, 2d ago Sinus bradycardia on propranolol Rule out structural heart disease echo result pending Migraine headaches Obesity ESR normal Time spent 35 minutes Plan discussed with: Patient Date of Service: Jun 24, 2024 Billing Provider: CAMILO LIMA MD Common Visit Codes: [id number] INP/OBS CARE(HIGH) CAMILO LIMA MD Jun 24, 2024 12:23
--- NOTE | 2024-06-24 12:46 | DVHSR ---
APPROVED REPORT EXAM: LIMITED Two-dimensional and M-mode echocardiogram with Doppler and color Doppler. Blood Pressure: 94/48 mmHg INDICATION Chest Pain RISK FACTORS Obesity: Height: 5' 5", Weight: 219 DIMENSIONS LVDd4.3 (3.8-5.7cm)LA (2D)3.7 (1.9-4.0cm)Aortic Root2.6 (2.0-3.7cm) LVDs2.9 (2.5-4.0cm)LA (MM) (1.9-4.0cm)Aortic Cusp Exc1.7 (1.5-2.0cm) EF (%) 60.0 (55-70%)Rt. Atrium3.6 (1.9-4.0cm)Asc. Aorta cm IVSd1.0 (0.7-1.1cm)RV (D) (1.8-2.4cm) PWd1.0 (0.7-1.1cm) Mitral Valve MitralMitral Stenosis E wave1.00m/sMV Mean GR.mmHg A wave0.50m/sMV Peak GR.mmHg E/A ratio2.02D MVAcm2 Aortic Valve Aortic ValveAortic Stenosis V10.80m/Marychuy Mean GR.4mmHg V21.40m/Mary[place]uy Peak GR.8mmHg LVOT Diameter2.0 (1.8-2.4cm)Doppler AVA1.79cm2 Pulmonic Valve V20.70m/s Tricuspid Valve TR Velocity2.40m/s [id number] Conclusion lvef 60% by visual estimate normal rv function no severe valve abnormalities noted
[2024-06-25 05:00] VITALS: BP 106/60; PULSE 53; RESP 18; TEMP 98; O2SAT 94
[2024-06-25 05:51] LABS: Basophils # (auto) 0 10 ^3/uL (0-0.2); Basophils % (auto) 0.2 % (0.0-2.0); Eosinophils # (auto) 0.1 10 ^3/uL (0-0.8); Eosinophils % (auto) 1.6 % (0.0-7.0); Hematocrit 38.7 % (36.0-46.0); Hemoglobin 13.2 g/dL (12.2-16.2); Lymphocytes # (auto) 2.5 10 ^3/uL (0.4-5.4); Lymphocytes % (auto) 43.9 % (10.0-50.0); Mean Corpuscular Hemoglobin 30.8 pg (28.0-32.0); Mean Corpuscular Hgb Conc. 34.2 g/dL (32.0-36.0); Mean Corpuscular Volume 90.1 fL (80.0-100.0); Monocytes # (auto) 0.6 10 ^3/uL (0-1.3); Monocytes % (auto) 10.3 % (0.0-12.0); Neutrophils # (auto) 2.5 10 ^3/uL (1.6-8.6); Nucleated Red Blood Cells % 0.1 %; Platelet Count (auto) 208 10^3/uL (140-450); Red Blood Cells 4.29 10^6/uL (4.0-5.20); Red Cell Distribution Width 12.8 % (11.8-14.3); White Blood Cell 5.8 10^3/uL (4.4-10.8)
[2024-06-25 06:07] LABS: Potassium 3.6 mmol/L (3.5-5.1); Sodium 140 mmol/L (136-145)
[2024-06-25 06:08] LABS: Anion Gap 12 (5-15); Calcium 9.2 mg/dL (8.7-10.4)
[2024-06-25 06:13] LABS: BUN/Creatinine Ratio 18.5 (10.0-20.0); Blood Urea Nitrogen 12 mg/dL (9-23); Carbon Dioxide 18 mmol/L (20-31); Chloride 110 mmol/L (98-107); Glucose 96 mg/dL (74-106)
[2024-06-25 08:00] VITALS: PULSE 56; PULSE 66; RESP 18; O2SAT 100
[2024-06-25 09:00] VITALS: BP 107/54; PULSE 62; RESP 18; TEMP 98; O2SAT 95
[2024-06-25] MEDS ORDERED: IBU600T PO (09:29)
[2024-06-25] MEDS ORDERED: COLC1CAP PO (09:29)
--- NOTE | 2024-06-25 09:31 | DVHPN2 ---
Reviewed: Care Plan, H&P, Labs, Medications, Previous Orders, Radiology Changes from previous H/P or p: No Changes Eyes: No Pain, No Vision change, No Conjunctivae inflammation, No Eyelid inflammation, No Other, No Redness ENT: No Ear pain, No Ear discharge, No Nose pain, No Nose discharge, No Nose congestion, No Mouth pain, No Mouth swelling, No Throat pain, No Throat swelling, No Other Cardiovascular: Chest Pain, Palpitations; No Orthopnea, No Paroxysmal Noc. Dyspnea, No Edema, No Lt Headedness, No Other Respiratory: No Cough, No Dry, No Shortness of breath, No SOB with excertion, No Wheezing, No Hemoptysis, No Pleuritic Pain, No Sputum, No Other Gastrointestinal: No Nausea, No Vomiting, No Abdominal Pain, No Diarrhea, No Constipation, No Melena, No Hematochezia, No Other Genitourinary: No Dysuria, No Frequency, No Incontinence, No Hematuria, No Retention, No Other Musculoskeletal: No other, No neck pain, No shoulder pain, No arm pain, No back pain, No hand pain, No leg pain, No foot pain Skin: No Rash, No Lesions, No Jaundice, No Bruising, No Other Objective Vitals Vital Signs Date Time Temp Pulse Resp B/P (MAP) Pulse Ox O2 Delivery O2 Flow Rate FiO2 06/25/24 05:00 98.0 53 18 106/60 (75) 94 98.0 06/24/24 20:00 Room Air* 0 21 Intake/Output Intake and Output 06/25/24 07:00 Intake Total 2350 ml Output Total 0 ml Balance 2350 ml Intake Oral 2350 ml Stool Total 0 ml # Voids 7 Medications Current Medications Medications Dose Ordered Sig/Chantal Route Start Time Stop Time Status Last Admin Dose Admin Ibuprofen 600 mg TID PO 06/23/24 22:00 06/25/24 05:53 600 MG Pantoprazole Sodium 40 mg DAILY@0630 PO 06/24/24 06:30 06/25/24 05:52 40 MG Colchicine 0.6 mg Q12HR PO 06/23/24 22:00 06/24/24 22:17 0.6 MG Metoprolol Tartrate 12.5 mg Q12HR PO 06/23/24 22:00 Cancel Morphine Sulfate 2 mg Q30MP PRN IV 06/23/24 16:30 UNV Acetaminophen 650 mg Q6HP PRN PO 06/23/24 16:30 Zolpidem Tartrate 5 mg QHSP PRN PO 06/23/24 16:30 Lorazepam 0.5 mg Q6HP PRN PO 06/23/24 16:30 Docusate Sodium 100 mg DAILY PO 06/24/24 10:00 06/24/24 10:00 100 MG Nitroglycerin 0.4 mg Q5MINP PRN SL 06/23/24 16:30 UNV Ondansetron HCl 4 mg Q4HP PRN IV 06/23/24 16:30 Morphine Sulfate 2 mg Q30M PRN IV 06/23/24 16:30 Laboratory Results Laboratory Tests 06/25/24 05:31 Chemistry Test 06/25/24 05:31 Calcium Level 9.2 mg/dL (8.7-10.4) Labs and/or images reviewed: Labs reviewed by me, Image(s) reviewed by me Assessment/Plan Assessment/Plan NSTEMI troponins 4530 likely secondary to acute viral pericarditis cardiology consult by Dr. Salter appreciated placed on NSAIDs and colchicine pantoprazole, ejection fraction 60 % Recent gastroenteritis, 2d ago Sinus bradycardia on propranolol Migraine headaches Obesity ESR normal Patient feels better with stable vital and wants to go home. No chest pain. Time spent 35 minutes Plan discussed with: Patient Date of Service: Jun 25, 2024 Billing Provider: CAMILO LIMA MD Common Visit Codes: [id number] INP/OBS CARE(HIGH) CAMILO LIMA MD Jun 25, 2024 09:31
--- NOTE | 2024-06-25 09:35 | DVHDS2 ---
Discharge Summary Date of Admission Jun 23, 2024 at 16:43 Date of Discharge: Jun 25, 2024 Admitting Diagnosis Chest pain Wounds: None Labs/Diagnostic Data: Laboratory Results Test 06/25/24 05:31 06/24/24 05:35 06/23/24 13:40 White Blood Count 5.8 10^3/uL (4.4-10.8) Red Blood Count 4.29 10^6/uL (4.0-5.20) Hemoglobin 13.2 g/dL (12.2-16.2) Hematocrit 38.7 % (36.0-46.0) Mean Corpuscular Volume 90.1 fL (80.0-100.0) Mean Corpuscular Hemoglobin 30.8 pg (28.0-32.0) Mean Corpuscular Hemoglobin Concent 34.2 g/dL (32.0-36.0) Red Cell Distribution Width 12.8 % (11.8-14.3) Platelet Count 208 10^3/uL (140-450) Mean Platelet Volume 8.9 fL (6.9-10.8) Neutrophils (%) (Auto) 44.0 % (37.0-80.0) Lymphocytes (%) (Auto) 43.9 % (10.0-50.0) Monocytes (%) (Auto) 10.3 % (0.0-12.0) Eosinophils (%) (Auto) 1.6 % (0.0-7.0) Basophils (%) (Auto) 0.2 % (0.0-2.0) Neutrophils # (Auto) 2.5 10 ^3/uL (1.6-8.6) Lymphocytes # (Auto) 2.5 10 ^3/uL (0.4-5.4) Monocytes # (Auto) 0.6 10 ^3/uL (0-1.3) Eosinophils # (Auto) 0.1 10 ^3/uL (0-0.8) Basophils # (Auto) 0 10 ^3/uL (0-0.2) Nucleated Red Blood Cells 0.1 % Sodium Level 140 mmol/L (136-145) Potassium Level 3.6 mmol/L (3.5-5.1) Chloride Level 110 mmol/L (98-107) Carbon Dioxide Level 18 mmol/L (20-31) Anion Gap 12 (5-15) Blood Urea Nitrogen 12 mg/dL (9-23) Creatinine 0.65 mg/dL (0.550-1.02) Glomerular Filtration Rate Calc 120 mL/min (>90) BUN/Creatinine Ratio 18.5 (10.0-20.0) Serum Glucose 96 mg/dL (74-106) Calcium Level 9.2 mg/dL (8.7-10.4) Troponin I High Sensitivity 1252 ng/L (</=34) Erythrocyte Sedimentation Rate 18 mm/hr (0-20) Prothrombin Time 10.4 sec (9.3-11.8) Prothrombin Time INR 0.98 (0.9-1.15) Activated Partial Thromboplast Time 41.7 SEC (24.5-34.5) Hemoglobin A1c 5.2 % A1C (<5.7) Magnesium Level 2.2 mg/dL (1.6-2.6) Total Bilirubin 0.3 mg/dL (0.2-1.0) Aspartate Amino Transferase (AST) 36 U/L (13-40) Alanine Aminotransferase (ALT) 22 U/L (7-40) Alkaline Phosphatase 82 U/L (46-116) C-Reactive Protein High Sensitivity 4.28 mg/dL (<1.0) B-Type Natriuretic Peptide 130.47 pg/mL (0-100) Total Protein 6.9 g/dL (5.7-8.2) Albumin 4.1 g/dL (3.2-4.8) Triglycerides Level 127 mg/dL (< 150) Cholesterol Level 124 mg/dL (< 200) LDL Cholesterol 64 mg/dL (< 100) HDL Cholesterol 38 mg/dL (40-59) Thyroid Stimulating Hormone (TSH) 0.17 uIU/mL (0.55-4.78) Other Laboratory Tests 06/25/24 05:31 Brief Hx & Hospital Course: 34-year-old female came in and admitted for chest pain troponin 4530. Diagnosed With non ST-elevation LA type 2 Patient had viral gastroenteritis two days ago seen by Cardiology Dr. Jarrod Koehler felt to be viral pericarditis echo 60 percent ejection fraction placed on Motrin and colchicine. At the time of discharge patient is afebrile without any chest pain stable vital signs and wants to go home. Discharged home on Motrin and colchicine medications transmitted to [facility] and she will follow up with the primary Dr in one week Consults/Reason for consult Cardiology Dr.Al Koehler Operations or Procedures Echocardiogram Condition at Discharge: Fair Final Diagnosis/Problems List NSTEMI troponins 4530 likely secondary to acute viral pericarditis cardiology consult by Dr. Salter appreciated placed on NSAIDs and colchicine pantoprazole, ejection fraction 60 % Recent gastroenteritis, 2d ago Sinus bradycardia on propranolol Migraine headaches Obesity ESR normal Discharge Disposition: Home Discharge Instruct/Medications Diet: Regular Activity: Light activity Follow Up/Referral: Use medications as prescribed Follow up with your primary Dr at [facility] in one week Medications: Colchicine Motrin Transmitted to [facility] (Time taken for discharge summary 39 minutes) Discharge Statement: "Patient was advised to return to the ER or call 911 if any headaches, dizziness, shortness of breath, chest pain, abdominal pain, bleeding, fevers, or worsening of medical condition. Patient was counseled about treatment plan, medications, possible side effects, patientverbalized understanding. All questions were answered to the best of my ability. This discharge took greater then 30 minutes in planning, reviewing documentation, counseling the patient, and discussing with other team members." ASSESSMENT ASSESSMENT Hospital Course Uneventful Assessment NSTEMI troponins 4530 likely secondary to acute viral pericarditis cardiology consult by Dr. Salter appreciated placed on NSAIDs and colchicine pantoprazole, ejection fraction 60 % Recent gastroenteritis, 2d ago Sinus bradycardia on propranolol Migraine headaches Obesity ESR normal Date of Service: Jun 25, 2024 Billing Provider: CAMILO LIMA MD Common Visit Codes: [id number]-ODV/OBS DISCH DAY >30min CAMILO LIMA MD Jun 25, 2024 09:35
--- NOTE | 2024-06-25 10:47 | ECG ---
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
[2024-06-25 12:24] VITALS: BP 107/54; PULSE 62; RESP 18; TEMP 98; O2SAT 95
[2024-06-25 13:00] VITALS: BP 107/54; PULSE 63; RESP 18; TEMP 98.3; O2SAT 95
== END 2024-06-25 13:25 | disposition home or self-care (01) | DRG 207 ==
LOC: ER 13:06 → EDBD 13:06 → TELE 16:43 → TELE-E-ADS 18:36
PROVIDERS: ADMIT Hospitalist; ATTEND Family Medicine
DX: I30.1 Infective pericarditis (principal); I21.A1 Myocardial infarction type 2; Z68.45 Body mass index [BMI] 70 or greater, adult; G43.909 Migraine, unspecified, not intractable, without status migrainosus; R00.1 Bradycardia, unspecified; E66.01 Morbid (severe) obesity due to excess calories; A08.4 Viral intestinal infection, unspecified
CPT/HCPCS: 36415; 80048; 85025; 93005; 96365; 96366; 99291; G0378